=== PATIENT | male | born 2000 | race Caucasian/White ===

== ENCOUNTER 2023-02-03 12:45 | Inpatient (IN) ==
[2023-02-03] MEDS ORDERED: Lactated Ringers 1000 ml BAG 1,000 ML IV ONE (16:54)
[2023-02-03 17:52] LABS: ABS Lymphocytes 0.9 10^3/uL (1.0-4.8); ABS Neutrophils 3.9 10^3/uL (1.5-7.6); Hematocrit 37.8 % (38-53); Hemoglobin 12.3 g/dL (13.2-16.3); Lymphocyte % 15.9 %; Mean Corpuscular Hemoglobin 25.9 pg (27-33); Mean Corpuscular Hgb Conc 32.6 g/dL (31-36); Mean Corpuscular Volume 79.4 fL (80-97); Mean Platelet Volume 7.8 fL (7.5-11.2); Nucleated Red Blood Cells % 0.1 /100 WBC (0.0-0.4); Platelet Count 205 10^3/uL (150-450); Red Blood Count 4.75 10^6/uL (4.06-5.63); Red Cell Distribution Width 15.8 % (12-17); White Blood Count 5.8 10^3/uL (3.6-10.2)
[2023-02-03] MEDS ORDERED: Buffered Lidocaine 1% SYRIN 1 ml INTRADERM ONE (17:53)
[2023-02-03] MEDS ORDERED: Naloxone 0.4 mg VIAL 0.4 mg/ml 1 ml VIAL IV PRN (17:54)
[2023-02-03] MEDS ORDERED: Ondansetron 4 mg VIAL 2 MG/ML 2 ml VIAL IV PRN (17:54)
[2023-02-03] MEDS ORDERED: Lactated Ringers 1000 ml BAG 1,000 ML IV SCH (18:00)
[2023-02-03 18:21] LABS: ALT 7 U/L (7-52); AST 20 U/L (13-39); Albumin 4.1 g/dL (3.2-5.2); Albumin/Globulin Ratio 1.3 (1-3); Alkaline Phosphatase 89 U/L (35-149); Anion Gap 10 mmol/L (2-16); Blood Urea Nitrogen 18 mg/dL (6-24); C Reactive Protein 3.31 mg/L (<8.01); CO2 Carbon Dioxide 22 mmol/L (22-32); Calcium 9.1 mg/dL (8.6-10.3); Chloride 104 mmol/L (101-111); Creatinine, Serum 0.58 mg/dL (0.67-1.17); Globulin 3.2 g/dL (2-4); Glucose 84 mg/dL (70-100); Lipase < 10 U/L (11.0-82.0); Magnesium 1.9 mg/dL (1.9-2.7); Potassium 3.8 mmol/L (3.5-5.0); Sodium 136 mmol/L (135-145); Total Protein 7.3 g/dL (6.4-8.9); eGFR CKD-EPI 141.4 (>60)
[2023-02-03] MEDS ORDERED: Sodium Phosphate ADULT ENEMA 133 ML BTL PR ONE (21:16)
[2023-02-03] MEDS: Lactated Ringers 1000 ml BAG 1,000 ML IV SCH (23:46)
[2023-02-04] MEDS ORDERED: Diatrizoate Meg/Sod(CONTRAST) 30 ML ORAL.SOLN PO ONE (00:30)
[2023-02-04 05:10] LABS: ABS Lymphocytes 1.7 10^3/uL (1.0-4.8); ABS Monocytes 0.7 10^3/uL (0.0-1.1); ABS Neutrophils 3.7 10^3/uL (1.5-7.6); ABS Nucleated RBC 0.01 10^3/ul; Eosinophil % 0.1 %; Hematocrit 33.5 % (38-53); Hemoglobin 11.4 g/dL (13.2-16.3); Mean Corpuscular Hemoglobin 26.5 pg (27-33); Mean Corpuscular Volume 77.8 fL (80-97); Mean Platelet Volume 7.5 fL (7.5-11.2); Nucleated Red Blood Cells % 0.2 /100 WBC (0.0-0.4); Platelet Count 175 10^3/uL (150-450); Red Blood Count 4.31 10^6/uL (4.06-5.63); White Blood Count 6.1 10^3/uL (3.6-10.2)
[2023-02-04 05:25] LABS: Calcium 8.1 mg/dL (8.6-10.3); Creatinine, Serum 0.52 mg/dL (0.67-1.17); Magnesium 1.6 mg/dL (1.9-2.7); Potassium 3.5 mmol/L (3.5-5.0); eGFR CKD-EPI 146.2 (>60)
[2023-02-04] MEDS ORDERED: Magnesium Sulfate IV 1GM/100ML 1 GM/100 ML BAG IV ONE (07:35)
[2023-02-04] MEDS ORDERED: Magnesium Sulfate IV 3 GM in NS 0.9% 100 ml BAG 100 ML IVPB ONE (08:30)
[2023-02-04] MEDS: Magnesium Hydroxide LIQ 30 ML UDC PO SCH ×2 (08:49→23:05)
[2023-02-04] MEDS ORDERED: Magnesium Sulfate IV 2 GM in NS 0.9% 100 ml BAG 100 ML IVPB ONE (10:02)
[2023-02-04] MEDS ORDERED: Magnesium Sulfate 2 GM IV (Premix) IVPB ONE (10:30)
[2023-02-04] MEDS ORDERED: Metoclopramide 5 MG/ML VIAL (10 mg) IV SLOW PU ONE (11:23)
[2023-02-04] MEDS ORDERED: Magnesium CITRATE LIQ 300 ML BTL PO ONE (11:23)
[2023-02-04] MEDS: Lactated Ringers 1000 ml BAG 1,000 ML IV SCH (16:19)
[2023-02-04] MEDS ORDERED: SMOG Enema (MgOH-NS-Gly-MinO) 330 ML ENEMA PR ONE (17:00)
[2023-02-04] MEDS ORDERED: Ondansetron 4 mg VIAL 2 MG/ML 2 ml VIAL IV PRN (18:48)
[2023-02-04] MEDS ORDERED: Ondansetron 4 mg VIAL 2 MG/ML 2 ml VIAL ONE (18:52)
[2023-02-05] MEDS: Lactated Ringers 1000 ml BAG 1,000 ML IV SCH (02:15)
[2023-02-05 06:02] LABS: Hematocrit 32.8 % (38-53); Hemoglobin 11.1 g/dL (13.2-16.3); Mean Corpuscular Hemoglobin 26.3 pg (27-33); Mean Corpuscular Hgb Conc 33.8 g/dL (31-36); Mean Corpuscular Volume 77.7 fL (80-97); Mean Platelet Volume 7.7 fL (7.5-11.2); Platelet Count 177 10^3/uL (150-450); Red Blood Count 4.23 10^6/uL (4.06-5.63); Red Cell Distribution Width 15.6 % (12-17); White Blood Count 5.3 10^3/uL (3.6-10.2)
[2023-02-05 06:18] LABS: Creatinine, Serum 0.56 mg/dL (0.67-1.17); Potassium 3.6 mmol/L (3.5-5.0); eGFR CKD-EPI 142.9 (>60)
[2023-02-05] MEDS: Magnesium Hydroxide LIQ 30 ML UDC PO SCH ×2 (09:12→20:53)
[2023-02-05] MEDS ORDERED: Lactated Ringers 1000 ml BAG 1,000 ML IV SCH ×2 (11:00→15:00)
[2023-02-05] MEDS ORDERED: SMOG Enema (MgOH-NS-Gly-MinO) 330 ML ENEMA PR ONE (13:00)
[2023-02-05] MEDS ORDERED: Buffered Lidocaine 1% SYRIN 1 ml INTRADERM ONE (14:20)
[2023-02-05] MEDS ORDERED: Lidocaine 2% PF 5 ML VIAL ONE (16:30)
[2023-02-05] MEDS ORDERED: Propofol 10 MG/ML 20 ML BTL ONE (16:30)
[2023-02-06 06:51] LABS: Calcium 8.2 mg/dL (8.6-10.3); Creatinine, Serum 0.52 mg/dL (0.67-1.17); Magnesium 2.3 mg/dL (1.9-2.7); Potassium 3.6 mmol/L (3.5-5.0); eGFR CKD-EPI 146.2 (>60)
[2023-02-06] MEDS ORDERED: SMOG Enema (MgOH-NS-Gly-MinO) 330 ML ENEMA PR ONE (09:00)
[2023-02-06] MEDS: Magnesium Hydroxide LIQ 30 ML UDC PO SCH (09:34)
[2023-02-06 10:08] VITALS: BP 106/69
== END 2023-02-06 13:26 | disposition home or self-care (01) | DRG 223 ==
LOC: ED 12:45 → SUATTDRO 19:09 → EDHOLD 19:09 → SSU 02-04 13:22
PROVIDERS: ADMIT Internal Medicine; ATTEND Internal Medicine
PROC: O.GIFSC (2023-02-05 13:10)